=== PATIENT | female | born 1970 | race Caucasian/White ===

== ENCOUNTER 2017-06-16 19:14 | Emergency (ER) | payer MEDICARE | END 2017-06-16 22:00 | disposition home or self-care (01) | LOC: D.ER 19:14 | DX: S80.12XA Contusion of left lower leg, initial encounter (principal); V09.9XXA Pedestrian injured in unspecified transport accident, initial encounter; Y93.89 Activity, other specified; Y92.410 Unspecified street and highway as the place of occurrence of the external cause; S00.531A Contusion of lip, initial encounter ==